=== PATIENT | female | born 1990 | race Caucasian/White ===

== ENCOUNTER 2017-10-09 16:43 | Emergency (ER) | payer OTHER ==
[~2017-10-09] VITALS: Ht 180.3 cm; Wt 90.7 kg
[~2017-10-09 16:43] MED LIST: ORPH100T PO; RELAGESIC 5001 EACH PO; SENOKOT TAB1 TAB PO
== END 2017-10-09 20:23 | disposition home or self-care (01) ==
LOC: ER 16:43
DX: J11.1 Influenza due to unidentified influenza virus with other respiratory manifestations (principal)

== ENCOUNTER 2018-01-06 05:02 | Emergency (ER) | payer OTHER ==
[~2018-01-06] VITALS: Ht 180.3 cm; Wt 88.5 kg
[2018-01-06] MEDS ORDERED: BACTRIM DS TAB1 EACH PO (10:10)
[2018-01-06] MEDS ORDERED: KETO10TA2 PO (10:10)
== END 2018-01-06 11:21 | disposition home or self-care (01) ==
LOC: ER 05:02
DX: B34.9 Viral infection, unspecified (principal); N39.0 Urinary tract infection, site not specified

== ENCOUNTER 2018-07-06 20:01 | Emergency (ER) | payer OTHER ==
[~2018-07-06] VITALS: Ht 180.3 cm; Wt 77.1 kg
[~2018-07-06 20:01] MED LIST changes: +BACTRIM DS TAB1 EACH PO; +KETO10TA2 PO
== END 2018-07-07 00:03 | disposition home or self-care (01) ==
LOC: ER 20:01
DX: L02.821 Furuncle of head [any part, except face] (principal)

== ENCOUNTER → 2018-08-30 | Emergency (ER) | payer OTHER ==
[~2018-08-30] VITALS: Ht 180.3 cm; Wt 77.1 kg
[~2018-08-30] MED LIST changes: +AMOX1TAB5 PO
== END | disposition home or self-care (01) ==
LOC: ER 14:13
DX: J06.9 Acute upper respiratory infection, unspecified (principal)

== ENCOUNTER 2022-01-30 12:21 | Emergency (ER) | payer OTHER ==
[~2022-01-30] VITALS: Ht 180.3 cm; Wt 74.4 kg
== END 2022-01-30 15:52 | disposition home or self-care (01) ==
LOC: ER 12:21
DX: U07.1 COVID-19 (principal)

== ENCOUNTER 2022-02-05 13:32 | Emergency (ER) | payer OTHER ==
[~2022-02-05] VITALS: Ht 180.3 cm; Wt 74.4 kg
== END 2022-02-05 17:36 | disposition home or self-care (01) ==
LOC: ER 13:32
DX: R53.81 Other malaise (principal); U07.1 COVID-19

== ENCOUNTER → 2022-05-11 | Emergency (ER) | payer OTHER ==
[~2022-05-11] VITALS: Ht 180.3 cm; Wt 73.5 kg
[~2022-05-11] MED LIST changes: +ZITHROMAX TRI-500 MG PO
== END | disposition home or self-care (01) ==
LOC: ER 14:40
DX: J06.9 Acute upper respiratory infection, unspecified (principal); Z20.822 Contact with and (suspected) exposure to COVID-19